=== PATIENT | female | born 1990 | race Caucasian/White ===

== ENCOUNTER 2020-01-23 19:51 | Emergency (ER) | payer MEDICAID, SELFPAY ==
[~2020-01-23] VITALS: Ht 162.6 cm; Wt 97.1 kg
[~2020-01-23 19:51] MED LIST: ACYC200C4 PO; CARV3.122 PO; CLIN300C2 PO; FURO40TA9 PO; LACT10CA PO; LISI10TA11 PO; MULT-1736 PO; SPIR50TA PO
[2020-01-23 19:54] VITALS: BP 110/88
--- NOTE | 2020-01-23 19:54 | NUR ---
PT TAKEN TO OF TENT
--- NOTE | 2020-01-23 20:44 | NUR ---
Dr. Nova examining patient.
--- NOTE | 2020-01-23 21:25 | NUR ---
Patient discharged with v/s stable. Written and verbal after care instructions given and explained. Patient verbalized understanding. Ambulatory with steady gait. All questions addressed prior to discharge. Advised to follow up with PMD.
--- NOTE | 2020-01-23 21:25 | NUR ---
COVID SWAB COLLECTED
== END 2020-01-23 21:25 | disposition home or self-care (01) ==
LOC: EEVIPCON 19:51 → MED 19:51
DX: F15.90 Other stimulant use, unspecified, uncomplicated (principal); Z20.828 Contact with and (suspected) exposure to other viral communicable diseases
CPT/HCPCS: 99283; U0003

== ENCOUNTER 2020-05-29 21:02 | Emergency (ER) | payer MEDICAID, SELFPAY ==
[~2020-05-29] VITALS: Ht 162.6 cm; Wt 91.2 kg
[2020-05-29 21:05] VITALS: BP 121/79
--- NOTE | 2020-05-29 21:08 | NUR ---
TO LOBBY A/W BED AMBULATORY
--- NOTE | 2020-05-29 22:24 | NUR ---
PT AMBULATED TO BED #12
[2020-05-29 22:25] VITALS: BP 105/48
--- NOTE | 2020-05-29 22:30 | NUR ---
SEE COMPLETE ASSESSMENT
[2020-05-29] MEDS ORDERED: NACL 0.9% 500 ML IV ONE (22:35)
[2020-05-29] MEDS ORDERED: KETOROLAC 30 MG/ML VIAL IVP ONE (22:35)
[2020-05-29] MEDS ORDERED: PROCHLORPERAZINE 10 MG/2 ML VIAL IVP ONE (22:35)
[2020-05-29] MEDS ORDERED: diphenhydrAMINE 50 MG/ML VIAL IVP ONE (22:35)
--- NOTE | 2020-05-29 22:45 | NUR ---
UNABLE TO PROVIDE URINE SPECIMEN AT THIS TIME.
[2020-05-29 23:01] LABS: BASOPHILS # (AUTO) 0.1 K/uL (0.00-0.22); BASOPHILS % (AUTO) 0.9 % (0.0-2.0); EOSINOPHILS # (AUTO) 0.2 K/uL (0-0.4); EOSINOPHILS % (AUTO) 2.5 % (0.0-4.0); HEMATOCRIT 37.3 % (36-48); HEMOGLOBIN 12.2 g/dL (12.0-16.0); LYMPHOCYTES # (AUTO) 2.1 K/uL (2.5-16.5); LYMPHOCYTES % (AUTO) 29.5 % (20.5-51.1); MEAN CORPUSCULAR HEMOGLOBIN 26 pg (27-31); MEAN CORPUSCULAR HGB CONC 33 g/dL (33-37); MEAN CORPUSCULAR VOLUME 79.7 fL (80-94); MONOCYTES # (AUTO) 0.5 K/uL (0.8-1.0); MONOCYTES % (AUTO) 7.2 % (1.7-9.3); NEUTROPHILS # (AUTO) 4.3 K/uL (1.8-7.7); NEUTROPHILS % (AUTO) 59.9 % (42.2-75.2); PLATELET COUNT (AUTO) 284 K/uL (140-450); RED BLOOD CELL COUNT(AUTO) 4.68 MIL/uL (4.20-5.40); RED CELL DISTRIBUTION WIDTH 14.7 % (11.6-13.7); WHITE BLOOD COUNT (AUTO) 7.3 K/uL (4.8-10.8)
[2020-05-29 23:16] LABS: ANION GAP 12.9 (8-16); CARBON DIOXIDE 28.7 mmol/L (21-32); CREATININE 0.5 mg/dL (0.6-1.3); POTASSIUM 3.6 mmol/L (3.5-5.1)
--- NOTE | 2020-05-30 | NUR ---
IV removed, catheter intact and site benign. Applied folded 4x4 gauze and tape to stop bleeding.
== END 2020-05-30 00:05 | disposition home or self-care (01) ==
LOC: MED 21:02
DX: R51.9 Headache, unspecified (principal); Z79.899 Other long term (current) drug therapy
CPT/HCPCS: 36415; 80048; 85025; 96361; 96374; 96375; 99284; J0780; J1200; J1885; J7030

== ENCOUNTER 2020-11-14 08:52 | Emergency (ER) | payer MEDICAID, SELFPAY ==
[~2020-11-14] VITALS: Ht 165.1 cm; Wt 88.0 kg
[~2020-11-14 08:52] MED LIST changes: -LISI10TA11 PO; +LISI10TA30 PO; -MULT-1736 PO; +MULT-2086 PO
[2020-11-14 08:53] VITALS: BP_SYST 117; BP_SYST 142; BP_DIAS 56; BP_DIAS 75
--- NOTE | 2020-11-14 08:57 | NUR ---
Patient ambulated to bed 4. RN evaluating the patient at bedside.
--- NOTE | 2020-11-14 09:09 | NUR ---
Dr. Mcneal is evaluating the patient at bedside.
--- NOTE | 2020-11-14 09:10 | NUR ---
30/F presents to ED with c/o body aches, chills and sore throat x3 days. Patient states she began having a sore throat and body aches along with chills 3 days ago with no relief. Patient states she took her temperature yesterday and had a fever of 102.3. Patient states she has 10/10 sharp throat pain when she swallows radiating to her left ear, patient took medication at home for fever and pain with minimal relief. Patient states she feels her heart racing, HR 143 in triage. Patient placed in gown on bedside school lunch monitor, HR in the 130s at this time, no fever upon arrival.
--- NOTE | 2020-11-14 09:20 | NUR ---
Tabitha and Strep A swab collected and given to clam bed laborer.
--- NOTE | 2020-11-14 09:27 | NUR ---
transportation engineering technician at bedside.
[2020-11-14 09:36] LABS: BASOPHILS # (AUTO) 0.1 K/uL (0.00-0.22); BASOPHILS % (AUTO) 0.6 % (0.0-2.0); EOSINOPHILS % (AUTO) 0.2 % (0.0-4.0); HEMATOCRIT 37.9 % (36-48); HEMOGLOBIN 12.7 g/dL (12.0-16.0); LYMPHOCYTES # (AUTO) 0.9 K/uL (2.5-16.5); LYMPHOCYTES % (AUTO) 8.7 % (20.5-51.1); MEAN CORPUSCULAR HEMOGLOBIN 26 pg (27-31); MEAN CORPUSCULAR HGB CONC 34 g/dL (33-37); MEAN CORPUSCULAR VOLUME 78.9 fL (80-94); MONOCYTES # (AUTO) 0.7 K/uL (0.8-1.0); MONOCYTES % (AUTO) 6.6 % (1.7-9.3); NEUTROPHILS # (AUTO) 8.5 K/uL (1.8-7.7); NEUTROPHILS % (AUTO) 83.9 % (42.2-75.2); PLATELET COUNT (AUTO) 245 K/uL (140-450); RED CELL DISTRIBUTION WIDTH 15.6 % (11.6-13.7); WHITE BLOOD COUNT (AUTO) 10.2 K/uL (4.8-10.8)
[2020-11-14] MEDS: NACL 0.9% 1,000 ML IV ONE (09:37)
[2020-11-14] MEDS: PENICILLIN G BENZATHINE L-A 1.2 MU/2 ML SYR IM ONE (09:38)
[2020-11-14] MEDS: KETOROLAC 30 MG/ML VIAL IVP ONE (09:41)
[2020-11-14] MEDS: DEXAMETHASONE 10 MG/ML VIAL IVP ONE (09:43)
[2020-11-14 09:49] LABS: ANION GAP 12.8 (8-16); CARBON DIOXIDE 28.1 mmol/L (21-32); CREATININE 0.6 mg/dL (0.6-1.3); POTASSIUM 3.9 mmol/L (3.5-5.1); TOTAL BILIRUBIN 2.3 mg/dL (0.0-1.0)
[2020-11-14 11:18] VITALS: BP 113/67
== END 2020-11-14 11:17 | disposition home or self-care (01) ==
LOC: MED 08:52
DX: J02.0 Streptococcal pharyngitis (principal); Z20.822 Contact with and (suspected) exposure to COVID-19; I50.9 Heart failure, unspecified
CPT/HCPCS: 36415; 71045; 80053; 81002; 81025; 85025; 87081; 87426; 96361; 96372; 96374; 96375; 99284; J0561; J1100; J1885; J7030

== ENCOUNTER 2020-12-27 10:01 | Emergency (ER) | payer MEDICAID ==
[~2020-12-27] VITALS: Ht 162.6 cm; Wt 89.8 kg
[~2020-12-27 10:01] MED LIST changes: +ACYC200C26 PO; -ACYC200C4 PO
[2020-12-27 10:09] VITALS: BP 112/89
--- NOTE | 2020-12-27 11:59 | NUR ---
30 YEAR OLD FEMALE COMPLAINS OF PELVIC PAIN X MORNING. PT STATES NAUSEA, VOMITTING, AND DIARRHEA. PT DENIES BLOOD IN STOOL. PT DENIES TRAUMA. PT AOX4, BREATHING EVEN AND UNLABORED, SKIN WARM AND DRY. BED IN LOWEST POSITION, LOCKED, BED RAIL UPX1. PMH - CHF ALLERGIES - NKA
[2020-12-27] MEDS ORDERED: ACET-2619 PO (12:43)
[2020-12-27] MEDS ORDERED: IBUP-2213 PO (12:51)
--- NOTE | 2020-12-27 12:52 | NUR ---
Patient discharged with v/s stable. Written and verbal after care instructions given and explained. Patient alert, oriented and verbalized understanding of instructions. Ambulatory with steady gait. All questions addressed prior to discharge. ID band removed. Patient advised to follow up with PMD. Rx of TYLENOL, MOTRIN given. Patient educated on indication of medication including possible reaction and side effects. Opportunity to ask questions provided and answered.
[2020-12-27 12:53] VITALS: BP 112/89
== END 2020-12-27 12:52 | disposition home or self-care (01) ==
LOC: MED 10:01
DX: R10.2 Pelvic and perineal pain (principal); I50.9 Heart failure, unspecified; Z79.899 Other long term (current) drug therapy
CPT/HCPCS: 76830; 76856; 81002; 81025; 99284; 99285

== ENCOUNTER 2021-07-18 12:04 | Emergency (ER) | payer MEDICAID ==
[~2021-07-18] VITALS: Ht 160 cm; Wt 91.6 kg
[~2021-07-18 12:04] MED LIST changes: +ACET-2619 PO; +IBUP-2213 PO
[2021-07-18] MEDS ORDERED: methylPREDNISolone SS 125 MG in WATER STERILE 2 ML IM ONE (12:25)
[2021-07-18] MEDS ORDERED: PRED20TA5 PO (12:27)
[2021-07-18 13:05] VITALS: BP 114/67
--- NOTE | 2021-07-18 13:10 | NUR ---
PT TO WAIT IN LOBBY
[2021-07-18] MEDS ORDERED: methylPREDNISolone SS 125 MG/2 ML VIAL ONE (13:23)
[2021-07-18] MEDS ORDERED: WATER STERILE 10 ML MC ONE (13:23)
[2021-07-18 14:26] VITALS: BP 128/77
== END 2021-07-18 14:26 | disposition home or self-care (01) ==
LOC: MED 12:04
DX: R21 Rash and other nonspecific skin eruption (principal); I51.9 Heart disease, unspecified; Z79.899 Other long term (current) drug therapy
CPT/HCPCS: 96372; 99283; J2930

== ENCOUNTER 2021-08-06 17:51 | Emergency (ER) | payer MEDICAID ==
[~2021-08-06] VITALS: Ht 162.6 cm; Wt 91.6 kg
[~2021-08-06 17:51] MED LIST changes: +PRED20TA5 PO
[2021-08-06 18:07] VITALS: BP 122/83
[2021-08-06] MEDS ORDERED: NAPR-54 PO (18:23)
[2021-08-06] MEDS ORDERED: PENI500T20 PO (18:23)
[2021-08-06] MEDS ORDERED: PRED20TA5 PO (18:23)
--- NOTE | 2021-08-06 18:57 | NUR ---
MONY DAVIS EVALUATED PATIENT, NO NURSING INTERVENTIONS NOTED AT THIS TIME.
[2021-08-06 18:58] VITALS: BP 122/83
--- NOTE | 2021-08-06 18:58 | NUR ---
Patient discharged with v/s stable. Written and verbal after care instructions ABOUT SORE THROAT given and explained. Patient alert, oriented and verbalized understanding of instructions. Ambulatory with steady gait. All questions addressed prior to discharge. ID band removed. Patient advised to follow up with PMD. Rx of NAPROSYN, PENICILLIN V POTASSIUM AND DELTASONE given.
== END 2021-08-06 18:58 | disposition home or self-care (01) ==
LOC: MED 17:51
DX: J02.9 Acute pharyngitis, unspecified (principal); I50.9 Heart failure, unspecified; Z79.899 Other long term (current) drug therapy
CPT/HCPCS: 99283

== ENCOUNTER 2022-03-19 12:57 | Emergency (ER) | payer MEDICAID ==
[~2022-03-19] VITALS: Ht 162.6 cm; Wt 84.8 kg
[~2022-03-19 12:57] MED LIST changes: +NAPR-54 PO; +PENI500T20 PO
[2022-03-19 13:04] VITALS: BP 112/64
--- NOTE | 2022-03-19 13:14 | NUR ---
PT AMBULATED TO ER BED 9
[2022-03-19] MEDS ORDERED: NACL 0.9% 1,000 ML IV SCH (14:10)
[2022-03-19] MEDS ORDERED: ONDANSETRON 4 MG/2 ML VIAL IVP ONE (14:10)
[2022-03-19] MEDS ORDERED: ALUMINUM HYD/MAG/SIMETHICONE 30 ML UDC PO ONE (14:10)
[2022-03-19] MEDS ORDERED: FAMOTIDINE 20 MG/2 ML VIAL IVP ONE (14:10)
[2022-03-19 14:41] LABS: BASOPHILS # (AUTO) 0.1 K/uL (0.00-0.22); BASOPHILS % (AUTO) 0.7 % (0.0-2.0); EOSINOPHILS # (AUTO) 0.1 K/uL (0-0.4); EOSINOPHILS % (AUTO) 1.1 % (0.0-4.0); HEMATOCRIT 34.8 % (36-48); HEMOGLOBIN 11.1 g/dL (12.0-16.0); LYMPHOCYTES # (AUTO) 1.8 K/uL (2.5-16.5); LYMPHOCYTES % (AUTO) 23.2 % (20.5-51.1); MEAN CORPUSCULAR HEMOGLOBIN 23 pg (27-31); MEAN CORPUSCULAR HGB CONC 32 g/dL (33-37); MEAN CORPUSCULAR VOLUME 72.2 fL (80-94); MONOCYTES # (AUTO) 0.4 K/uL (0.8-1.0); MONOCYTES % (AUTO) 5.6 % (1.7-9.3); NEUTROPHILS # (AUTO) 5.3 K/uL (1.8-7.7); NEUTROPHILS % (AUTO) 69.4 % (42.2-75.2); PLATELET COUNT (AUTO) 307 K/uL (140-450); RED BLOOD CELL COUNT(AUTO) 4.81 MIL/uL (4.20-5.40); RED CELL DISTRIBUTION WIDTH 16.4 % (11.6-13.7); WHITE BLOOD COUNT (AUTO) 7.7 K/uL (4.8-10.8)
[2022-03-19 14:42] LABS: APPEARANCE,URINE CLEAR (CLEAR); BILIRUBIN,URINE NEGATIVE (NEGATIVE); BLOOD, URINE 2+ (NEGATIVE); COLOR,URINE YELLOW (YELLOW); LEUKOCYTE ESTERASE ,URINE NEGATIVE (NEGATIVE); NITRITE, URINE NEGATIVE (NEGATIVE); UGLUCOSE NEGATIVE (NEGATIVE)
[2022-03-19 14:59] LABS: ALBUMIN 3.6 g/dL (3.4-5.0); ANION GAP 14.1 (8-16); CARBON DIOXIDE 27.6 mmol/L (21-32); CREATININE 0.5 mg/dL (0.6-1.3); POTASSIUM 3.7 mmol/L (3.5-5.1); TOTAL BILIRUBIN 1.4 mg/dL (0.0-1.0)
[2022-03-19 15:35] LABS: WBC,URINE 0-5 /HPF (0-5); YEAST,URINE None Seen /HPF (None Seen)
[2022-03-19 15:36] LABS: TRICHOMONAS,URINE None Seen /HPF (None Seen)
[2022-03-19] MEDS ORDERED: METOCLOPRAMIDE 10 MG/2 ML INJ VIAL IVP ONE (15:55)
[2022-03-19] MEDS ORDERED: ACETAMINOPHEN 325 MG TAB PO ONE (15:55)
[2022-03-19] MEDS ORDERED: FAMO-90 PO (17:35)
[2022-03-19] MEDS ORDERED: METO-485 PO (17:35)
[2022-03-19] MEDS ORDERED: SUCR1TAB35 PO (17:36)
--- NOTE | 2022-03-19 17:53 | NUR ---
Patient discharged with v/s stable. Written and verbal after care instructions given and explained. Patient alert, oriented and verbalized understanding of instructions. Ambulatory with steady gait. All questions addressed prior to discharge. ID band removed. Patient advised to follow up with PMD. Rx of carafate, pecid and reglan given. Patient educated on indication of medication including possible reaction and side effects. Opportunity to ask questions provided and answered.
[2022-03-19 17:54] VITALS: BP 120/65
--- NOTE | 2022-03-22 11:17 | NUR ---
LATE ENTRY- IV NORMAL SALINE DISCONTINUED AT 1753.
== END 2022-03-19 17:54 | disposition home or self-care (01) ==
LOC: MED 12:57
DX: R10.13 Epigastric pain (principal); R11.2 Nausea with vomiting, unspecified; R19.7 Diarrhea, unspecified; R51.9 Headache, unspecified; I50.9 Heart failure, unspecified; Z79.899 Other long term (current) drug therapy; Z79.2 Long term (current) use of antibiotics; Z79.1 Long term (current) use of non-steroidal anti-inflammatories (NSAID)
CPT/HCPCS: 36415; 80053; 81001; 81025; 83690; 84702; 85025; 96361; 96374; 96375; 99284; J2405; J2765; J3490; J7030

== ENCOUNTER 2022-04-01 09:31 | Emergency (ER) | payer MEDICAID ==
[~2022-04-01] VITALS: Ht 167.6 cm; Wt 85.7 kg
[~2022-04-01 09:31] MED LIST changes: +FAMO-90 PO; +METO-485 PO; +SUCR1TAB35 PO
[2022-04-01 09:39] VITALS: BP 135/77
--- NOTE | 2022-04-01 09:45 | NUR ---
Patient ambulated to bed 09 with steady/even gait.
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
[2022-04-01] MEDS ORDERED: NACL 0.9% 1,000 ML IV ONE (10:25)
[2022-04-01] MEDS ORDERED: AMPICILLIN/SULBACTAM 3 GM in NACL 0.9% 100 ML IV ONE (10:25)
--- NOTE | 2022-04-01 10:53 | NUR ---
l 3rd digit irrigated with betadine and sterile water.
[2022-04-01] MEDS ORDERED: AMPICILLIN/SULBACTAM 3 GM VIAL ONE (10:55)
--- NOTE | 2022-04-01 11:15 | NUR ---
Tdap consent form signed.
[2022-04-01] MEDS ORDERED: AMOX1TAB8 PO (11:53)
[2022-04-01] MEDS ORDERED: IBUP-1842 PO (11:55)
[2022-04-01 12:20] VITALS: BP 134/92
--- NOTE | 2022-04-01 12:22 | NUR ---
Patient discharged with v/s stable. Written and verbal after care instructions given and explained. Patient alert, oriented and verbalized understanding of instructions. Ambulatory with steady gait. All questions addressed prior to discharge. ID band removed. Patient advised to follow up with PMD. Rx of Amoxicillin/Potassium, Ibuprofen given. Patient educated on indication of medication including possible reaction and side effects. Opportunity to ask questions provided and answered. Copies of [facility] info given with RAD results.
== END 2022-04-01 12:22 | disposition home or self-care (01) ==
LOC: MED 09:31
DX: L03.012 Cellulitis of left finger (principal)
CPT/HCPCS: 73140; 81002; 81025; 90471; 90715; 96365; 99284; J0295

== ENCOUNTER 2022-06-22 20:28 | Emergency (ER) | payer MEDICAID ==
[~2022-06-22] VITALS: Ht 162.6 cm; Wt 89.4 kg
[~2022-06-22 20:28] MED LIST changes: +AMOX1TAB8 PO; +IBUP-1842 PO
[2022-06-22 20:47] VITALS: BP 110/66
--- NOTE | 2022-06-22 20:50 | NUR ---
TO LOBBY A/W BED AMBULATORY
--- NOTE | 2022-06-22 23:00 | NUR ---
PT TAKEN TO BED 1
--- NOTE | 2022-06-22 23:35 | NUR ---
Patient resting in bed, A/Ox4, chest rise and fall symmetrical, no s/s of distress.
[2022-06-22] MEDS ORDERED: CYCL-711 PO (23:52)
[2022-06-22] MEDS ORDERED: IBUP-2213 PO (23:52)
[2022-06-22] MEDS ORDERED: LID5T TP (23:52)
[2022-06-22] MEDS ORDERED: KETOROLAC 60 MG/2 ML VIAL IM ONE (23:55)
[2022-06-23 00:18] VITALS: BP 112/68
== END 2022-06-23 00:19 | disposition home or self-care (01) ==
LOC: MED 20:28
DX: S39.012A Strain of muscle, fascia and tendon of lower back, initial encounter (principal); Z20.822 Contact with and (suspected) exposure to COVID-19; I50.9 Heart failure, unspecified; Z79.899 Other long term (current) drug therapy; X50.1XXA Overexertion from prolonged static or awkward postures, initial encounter; Y93.89 Activity, other specified; Y92.89 Other specified places as the place of occurrence of the external cause; Y99.0 Civilian activity done for income or pay
CPT/HCPCS: 72125; 72131; 81025; 96372; 99284; J1885

== ENCOUNTER 2022-08-02 21:55 | Emergency (ER) | payer MEDICAID ==
[~2022-08-02] VITALS: Ht 162.6 cm; Wt 88.5 kg
[~2022-08-02 21:55] MED LIST changes: +CYCL-711 PO; +LID5T TP
[2022-08-02 22:18] VITALS: BP 118/71
--- NOTE | 2022-08-02 22:41 | NUR ---
PT TO 12
--- NOTE | 2022-08-02 22:43 | NUR ---
Pt stated that for the last 2 days, pain and tingling and brain freeze forehead and mostly feels on the right of side of face. Alert and oriented x 4. ambulatory
[2022-08-02] MEDS ORDERED: KETOROLAC 15 MG/ML VIAL IVP ONE (23:15)
[2022-08-02] MEDS ORDERED: METOCLOPRAMIDE 10 MG/2 ML INJ VIAL IVP ONE (23:15)
[2022-08-03] MEDS ORDERED: IBUP-2218 PO (00:44)
[2022-08-03] MEDS ORDERED: ACET-10509 PO (00:44)
--- NOTE | 2022-08-03 00:48 | NUR ---
d/c with VSS. d/c education given. opportunity to ask questions given and answered. IV site removed, bleeding controlled with sterile gauze and reinforced with tape.
[2022-08-03 00:49] VITALS: BP 132/69
== END 2022-08-03 00:49 | disposition home or self-care (01) ==
LOC: MED 21:55
DX: R51.9 Headache, unspecified (principal); H53.8 Other visual disturbances; I50.9 Heart failure, unspecified; F15.90 Other stimulant use, unspecified, uncomplicated; Z79.899 Other long term (current) drug therapy
CPT/HCPCS: 96374; 96375; 99284; J1885; J2765

== ENCOUNTER 2022-08-23 15:52 | Emergency (ER) | payer MEDICAID ==
[~2022-08-23] VITALS: Ht 162.6 cm; Wt 88.0 kg
[~2022-08-23 15:52] MED LIST changes: +ACET-10509 PO; +IBUP-2218 PO
[2022-08-23 16:00] VITALS: BP 127/72
[2022-08-23] MEDS ORDERED: IBUP-2213 PO (16:10)
[2022-08-23] MEDS ORDERED: OFLO5SOL27 RIGHT EAR (16:10)
--- NOTE | 2022-08-23 16:10 | NUR ---
31 Y/O FEMALE C/O RIGHT SIDED EAR ACHE, WITH DECREASED HEARING, SORE THROAT AND COUGHX1 DAY. 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
--- NOTE | 2022-08-23 16:17 | NUR ---
Patient discharged with v/s stable. Written and verbal after care instructions ABOUT OTITIS EXTERNA given and explained. Patient alert, oriented and verbalized understanding of instructions. Ambulatory with steady gait. All questions addressed prior to discharge. ID band removed. Patient advised to follow up with PMD. Rx of MOTRIN AND OFLOXACIN given. Patient educated on indication of medication including possible reaction and side effects. Opportunity to ask questions provided and answered.
== END 2022-08-23 16:17 | disposition home or self-care (01) ==
LOC: MED 15:52
DX: H60.91 Unspecified otitis externa, right ear (principal); J06.9 Acute upper respiratory infection, unspecified; I50.9 Heart failure, unspecified; Z79.899 Other long term (current) drug therapy
CPT/HCPCS: 99283

== ENCOUNTER 2022-09-14 08:58 | Emergency (ER) | payer MEDICAID ==
[~2022-09-14] VITALS: Ht 160 cm; Wt 89.4 kg
[~2022-09-14 08:58] MED LIST changes: +OFLO5SOL27 RIGHT EAR
[2022-09-14 09:20] VITALS: BP 110/85
--- NOTE | 2022-09-14 09:26 | NUR ---
PT AMB TO BED 7
[2022-09-14] MEDS ORDERED: IBUPROFEN 600 MG TAB PO ONE (09:35)
[2022-09-14] MEDS ORDERED: ALBUTEROL SULFATE/IPRATROPIU 3 ML SOL IH ONE (09:35)
--- NOTE | 2022-09-14 09:35 | NUR ---
31YO FEMALE PT C/O COUGH, FEVER AND CHILLS X3DAYS. CHEST PAIN ON COUGH. REPORTS FEVER OF 102.0 W/ RELIEF AFTER TYLENOL. BLAKE CLEAR LUNG SOUNDS. RESPIRATIONS EVEN AND UNLABORED. DENIES SOB, N/V/D OR ANYONE SICK AT HOME. 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 HX: CHF NKA
--- NOTE | 2022-09-14 09:39 | NUR ---
LAB AT BEDSIDE
[2022-09-14] MEDS ORDERED: IBUPROFEN 600 MG TAB ONE (09:40)
--- NOTE | 2022-09-14 09:40 | NUR ---
[facility] GIVEN ORDERED ENCOURAGED PATIENT FOR INTEMITTENT DEEP BREATH AND COUGH
--- NOTE | 2022-09-14 09:41 | NUR ---
RT AT BEDSIDE
[2022-09-14 09:57] LABS: BASOPHILS % (AUTO) 0.6 % (0.0-2.0); EOSINOPHILS # (AUTO) 0.1 K/uL (0-0.4); EOSINOPHILS % (AUTO) 1.4 % (0.0-4.0); HEMATOCRIT 33.3 % (36-48); HEMOGLOBIN 10.9 g/dL (12.0-16.0); LYMPHOCYTES # (AUTO) 1.3 K/uL (2.5-16.5); LYMPHOCYTES % (AUTO) 22.6 % (20.5-51.1); MEAN CORPUSCULAR HEMOGLOBIN 23 pg (27-31); MEAN CORPUSCULAR HGB CONC 33 g/dL (33-37); MEAN CORPUSCULAR VOLUME 71.8 fL (80-94); MONOCYTES # (AUTO) 0.4 K/uL (0.8-1.0); MONOCYTES % (AUTO) 7.9 % (1.7-9.3); NEUTROPHILS # (AUTO) 3.8 K/uL (1.8-7.7); NEUTROPHILS % (AUTO) 67.5 % (42.2-75.2); PLATELET COUNT (AUTO) 268 K/uL (140-450); RED BLOOD CELL COUNT(AUTO) 4.64 MIL/uL (4.20-5.40); RED CELL DISTRIBUTION WIDTH 17.4 % (11.6-13.7); WHITE BLOOD COUNT (AUTO) 5.7 K/uL (4.8-10.8)
[2022-09-14 10:17] LABS: ALBUMIN 3.7 g/dL (3.4-5.0); ANION GAP 13.6 (8-16); CARBON DIOXIDE 24.4 mmol/L (21-32); CREATININE 0.6 mg/dL (0.6-1.3); TOTAL BILIRUBIN 0.5 mg/dL (0.0-1.0)
[2022-09-14] MEDS ORDERED: PROM473S5 PO (10:31)
[2022-09-14] MEDS ORDERED: IBUP-2213 PO (10:31)
[2022-09-14] MEDS ORDERED: DOXY-487 PO (10:31)
[2022-09-14] MEDS ORDERED: AMOX-999 PO (10:35)
--- NOTE | 2022-09-14 10:43 | NUR ---
Patient discharged with v/s stable. Written and verbal after care instructions FOR COMMUNITY AQUIRED PNEUMONIA given and explained. Patient alert, oriented and verbalized understanding of instructions. Ambulatory with steady gait. All questions addressed prior to discharge. ID band removed. Patient advised to follow up with PMD. Rx of DOXYCYCLINE IBUPROFEN AND PROMETHAZINE given. Opportunity to ask questions provided and answered.
--- NOTE | 2022-09-14 10:45 | NUR ---
The patient's care was reviewed and supervised by Audrey Allen, RN, RN.
== END 2022-09-14 10:43 | disposition home or self-care (01) ==
LOC: MED 08:58
DX: J18.9 Pneumonia, unspecified organism (principal); Z79.2 Long term (current) use of antibiotics; Z79.1 Long term (current) use of non-steroidal anti-inflammatories (NSAID); Z79.899 Other long term (current) drug therapy
CPT/HCPCS: 36415; 71045; 80053; 81025; 83880; 84484; 85025; 93005; 99285; Q0092; 94640

== ENCOUNTER 2023-05-02 12:22 | Emergency (ER) | payer MEDICAID ==
[~2023-05-02] VITALS: Ht 162.6 cm; Wt 86.6 kg
[~2023-05-02 12:22] MED LIST changes: +AMOX-999 PO; +DOXY-487 PO; +PROM473S5 PO
[2023-05-02 12:54] VITALS: BP 129/47; PULSE 109; RESP 15; TEMP 97.8; O2SAT 99
[2023-05-02 13:19] LABS: APPEARANCE,URINE SL CLOUDY (CLEAR); BILIRUBIN,URINE NEGATIVE (NEGATIVE); BLOOD, URINE TRACE-I (NEGATIVE); COLOR,URINE YELLOW (YELLOW); LEUKOCYTE ESTERASE ,URINE 2+ (NEGATIVE); NITRITE, URINE POSITIVE (NEGATIVE); PROTEIN,URINE 3+ (NEGATIVE); UGLUCOSE 1+ (NEGATIVE); UROBILINOGEN,URINE >=8.0 EU/dL (0.2 - 1)
[2023-05-02 13:38] LABS: RBC,URINE 0-5 /HPF (0-5)
[2023-05-02 13:39] LABS: BACTERIA,URINE 10-30 (MOD) /HPF (None Seen); MUCUS,URINE None Seen /LPF (None Seen); SQUAMOUS EPITHELIAL CELL,UR 0-3 (FEW) /LPF (0-3 (FEW))
[2023-05-02] MEDS ORDERED: KETOROLAC 30 MG/ML VIAL IM ONE (14:00)
[2023-05-02] MEDS ORDERED: CEPH-588 PO (14:07)
[2023-05-02] MEDS ORDERED: ACET-2619 PO (14:07)
[2023-05-02] MEDS ORDERED: PHEN-1877 PO (14:07)
== END 2023-05-02 14:19 | disposition home or self-care (01) ==
LOC: MED 12:22
DX: N39.0 Urinary tract infection, site not specified (principal); Z79.899 Other long term (current) drug therapy; Z79.2 Long term (current) use of antibiotics; Z79.1 Long term (current) use of non-steroidal anti-inflammatories (NSAID)
CPT/HCPCS: 81001; 81025; 87086; 99283

== ENCOUNTER 2023-07-08 16:36 | Emergency (ER) | payer MEDICAID ==
[~2023-07-08] VITALS: Ht 162.6 cm; Wt 89.4 kg
[~2023-07-08 16:36] MED LIST changes: +CEPH-588 PO; +PHEN-1877 PO
[2023-07-08 16:47] VITALS: BP 100/80; PULSE 116; RESP 18; TEMP 98.9; O2SAT 98
[2023-07-08] MEDS ORDERED: ONDANSETRON 4 MG/2 ML VIAL IVP ONE (17:35)
[2023-07-08] MEDS ORDERED: NACL 0.9% 1,000 ML IV ONE (17:35)
[2023-07-08 17:39] LABS: APPEARANCE,URINE CLEAR (CLEAR); BILIRUBIN,URINE NEGATIVE (NEGATIVE); BLOOD, URINE TRACE-I (NEGATIVE); COLOR,URINE YELLOW (YELLOW); LEUKOCYTE ESTERASE ,URINE NEGATIVE (NEGATIVE); NITRITE, URINE NEGATIVE (NEGATIVE); PH,URINE 5.5 (5.0-9.0); PROTEIN,URINE NEGATIVE (NEGATIVE); UGLUCOSE NEGATIVE (NEGATIVE); UROBILINOGEN,URINE 0.2 EU/dL (0.2 - 1)
[2023-07-08 17:45] LABS: BACTERIA,URINE FEW /HPF (None Seen); MUCUS,URINE 1+ /LPF (None Seen); RBC,URINE 0-5 /HPF (0-5); SQUAMOUS EPITHELIAL CELL,UR 0-3 (FEW) /LPF (0-3 (FEW)); TRICHOMONAS,URINE None Seen /HPF (None Seen); WBC,URINE 0-5 /HPF (0-5); YEAST,URINE None Seen /HPF (None Seen)
[2023-07-08] MEDS ORDERED: IBUP-2213 PO (18:30)
[2023-07-08] MEDS ORDERED: ONDA-188 SL (18:30)
[2023-07-08 19:50] VITALS: BP 118/80; PULSE 98; RESP 18; TEMP 98.1; O2SAT 98
== END 2023-07-08 19:50 | disposition home or self-care (01) ==
LOC: MED 16:36
DX: R11.2 Nausea with vomiting, unspecified (principal); R19.7 Diarrhea, unspecified; R53.1 Weakness; I50.9 Heart failure, unspecified; Z98.890 Other specified postprocedural states; Z79.899 Other long term (current) drug therapy; Z79.1 Long term (current) use of non-steroidal anti-inflammatories (NSAID); Z79.2 Long term (current) use of antibiotics
CPT/HCPCS: 81001; 81025; 96361; 96374; 99283; J2405; J7030

== ENCOUNTER 2023-10-15 16:44 | Emergency (ER) | payer MEDICAID ==
[~2023-10-15] VITALS: Ht 165.1 cm; Wt 92.1 kg
[~2023-10-15 16:44] MED LIST changes: +NAPR-337 PO; -NAPR-54 PO; +ONDA-188 SL; +SUCR-34 PO; -SUCR1TAB35 PO
[2023-10-15 16:55] VITALS: BP 108/83; PULSE 88; RESP 18; TEMP 97.2; O2SAT 98
[2023-10-15 17:51] LABS: FLU A ANTIGEN negative (NEGATIVE); FLU B ANTIGEN negative (NEGATIVE)
[2023-10-15] MEDS ORDERED: PROM118S5 PO (17:54)
[2023-10-15] MEDS ORDERED: ACET-10509 PO (17:54)
== END 2023-10-15 18:20 | disposition home or self-care (01) ==
LOC: MED 16:44
DX: R05.9 Cough, unspecified (principal); Z20.822 Contact with and (suspected) exposure to COVID-19; I50.9 Heart failure, unspecified; Z79.899 Other long term (current) drug therapy
CPT/HCPCS: 71045; 99284